=== PATIENT | female | born 1980 | race Caucasian/White ===

== ENCOUNTER 2017-07-02 10:52 | Inpatient (IN) | payer MEDICARE ==
[2017-07-02] MEDS ORDERED: Sodium Chloride 0.9% 1000 ML 1,000 ML IV STA ×3 (10:54→12:44)
--- NOTE | 2017-07-02 11:05 | ERPHSYRPT ---
- History of Present Illness Time Seen by Provider: 07/02/17 10:58 Source: EMS Exam Limitations: other (altered mental condition) Physician History: Pt was found confused by her adult care provider today. She is an unfortunate young lady , who is paraplegic due to and accident. She is responding verbally, c/o abdominal pain, denies vomiting, but unable to give a good, detailed history. Time of Onset/Last Time Seen Normal: yesterday Timing/Duration: today Severity: severe Character of Deficits: other (confusion) Deficits: bed-ridden Baseline/Normal Cognition: alert oriented x 3 Current Cognition: alert but confused Baseline Gait: unable to walk Associated Symptoms: other (abdominal pain) Allergies/Adverse Reactions: prochlorperazine edisylate [From Compazine] Allergy (Mild, Verified 07/02/17 11: 04) prochlorperazine maleate [From Compazine] Allergy (Mild, Verified 07/02/17 11:04 ) latex Adverse Reaction (Verified 07/02/17 11:04) Home Medications: Atenolol [Tenormin] 25 mg PO DAILY 01/11/12 [History] Baclofen 25 mg PO QID 01/11/12 [History] Ferrous Sulfate 325 mg [Feosol 325 mg] 325 mg PO TID 01/11/12 [History] Gabapentin 300 mg [Neurontin 300 mg] 300 mg PO TID 01/11/12 [History] Niacin [Niaspan] 1,000 mg PO HS 01/11/12 [History] Omeprazole 20 MG [Prilosec 20 mg] 20 mg PO DAILY 01/11/12 [History] Oxybutynin Chloride [Ditropan Xl] 15 mg PO BID 01/11/12 [History] Trazodone HCl 50 mg [Desyrel 50 mg] 100 mg PO DAILY 01/11/12 [History] Atorvastatin Calcium [Lipitor] 10 mg PO HS 04/27/12 [History] Cranberry Conc/Ascorbic Acid [Cranberry 6,000 mg Softgel] 2 each PO DAILY [History] Desog-E.estradiol/E.estradiol [Viorele 28 Day Tablet] 1 each PO DAILY 04/01/16 [ History] Lactobacillus Acidophilus [Acidophilus TABLET] 1 tab PO DAILY 04/01/16 [ History] SUMAtriptan succinate [Imitrex 50 mg] 50 mg PO .PRN 04/01/16 [History] Solifenacin Succinate [Vesicare] 10 mg PO DAILY 04/01/16 [History] Oxycodone HCl/Acetaminophen [Percocet 7.5-325 mg Tablet] 1 each PO Q6HPRN PRN [History] Oxycodone HCl/Acetaminophen [Percocet 5-325 mg Tablet] 1 each PO Q6-8HPRN PRN [History] Hx Tetanus, Diphtheria Vaccination/Date Given: No Hx Influenza Vaccination/Date Given: No Hx Pneumococcal Vaccination/Date Given: No - Review of Systems Abdominal/Gastrointestinal: Abdominal Pain All Other Systems: Unable due to condition - Past Medical History Pertinent Past Medical History: Yes Neurological History: Paralysis ENT History: No Pertinent History Cardiac History: Arrhythmia, High Cholesterol Respiratory History: Bronchitis Endocrine Medical History: No Pertinent History Musculoskeletal History: Arthritis GI Medical History: GERD History: Other Psycho-Social History: Anxiety Female Reproductive Disorders: No Pertinent History Other Medical History: [place] SINCE 1996; UTI, chronic cystitis - Past Surgical History Past Surgical History: Yes Neuro Surgical History: No Pertinent History Cardiac: No Pertinent History Respiratory: No Pertinent History Gastrointestinal: Cholecystectomy Genitourinary: No Pertinent History Musculoskeletal: Amputation Female Surgical History: No Pertinent History Other Surgical History: RT LEG- 8 SURGERIES. BACK SURGERY. SUPRAPUBIC CATH - Social History Smoking Status: Never smoker Exposure to second hand smoke: No Drug Use: none Patient Lives Alone: Yes - Female History Hx Now: No - Nursing Vital Signs Nursing Vital Signs: Initial Vital Signs Pulse Rate 144 H 07/02/17 10:57 Respiratory Rate 20 07/02/17 10:57 Blood Pressure 171/93 07/02/17 10:57 O2 Sat by Pulse Oximetry 95 07/02/17 10:57 Pain Scale Pain Intensity 4 - [place] Coma Scale Best Eye Response ([place]): (4) open spontaneously Best Verbal Response ([place]): (4) confused conversation Best Motor Response ([place]): (6) obeys commands [place] Total: 14 - Physical Exam General Appearance: mild distress Eye Exam: bilateral eye: PERRL, EOMI Ears, Nose, Throat Exam: dry mucous membranes Neck Exam: normal inspection, non-tender, supple, No mass, No JVD Respiratory: normal breath sounds, lungs clear, airway intact, No chest tenderness, No respiratory distress Cardiovascular: tachycardia Gastrointestinal: soft, tenderness (diffuse, lower abdomen), distention (severe , lower abdominal), other (umbilicus: small amount of clear liquid drainage ( acccording to patient it has been chronic)) Pelvic Exam: not done Extremity Exam: other (right BKA, both legs with severly atriphic muscles, no edema or tenderness.) Peripheral Pulses: dorsalis-pedis (L): 2+ Mental Status: alert, cooperative, 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 Exam: normal speech, PERRL Skin Exam: normal color, warm, dry, No rash SpO2 Interpretation: normal Oxygen Delivery: Room Air - Course Nursing assessment & vital signs reviewed: Yes EKG Interpreted by Me: RATE (149/min), Sinus Tach, NORMAL AXIS, Non-specific ST Changes - CT Exams Head CT Interpretation: Negative, Tele-radiologist Report Abdomen/Pelvis CT Interpretation: Discussed w/radiologist, Tele-radiologist Report, Other ( discussed with Dr Leong, irregular hypodensity in the subcapsular right lobe of the liver, suggestive of liver laceration/hematoma, correlate with patient history, differential considerations could include an atypival appearance for focal fatty infiltration, teher is no perihepatic collection no evidence of active hemorrhage.) Ordered Tests: Active Orders 24 hr Category Date Time Status Catheter-[place] Mariano STAT Care 07/02/17 10:54 Active EKG-ER Only STAT Care 07/02/17 10:54 Active EKG-ER Only STAT Care 07/02/17 11:05 Active IV Insertion STAT Care 07/02/17 10:54 Active ABDOMEN AND PELVIS W CONTRAST [CT] Stat Exams 07/02/17 11:02 Taken CHEST 1 VIEW (PORTABLE) Stat Exams 07/02/17 10:54 Taken HEAD WITHOUT CONTRAST [CT] Stat Exams 07/02/17 11:02 Taken AMYLASE Stat Lab 07/02/17 13:21 Ordered BLOOD CULTURE Stat Lab 07/02/17 12:00 Received CBC W DIFF Stat Lab 07/02/17 11:36 Completed CK-Creatinine Phosphokinase Urgent Lab 07/02/17 11:36 Completed CMP Stat Lab 07/02/17 11:36 Completed CULTURE,URINE Stat Lab 07/02/17 11:30 Received HCG,QUALITATIVE URINE Stat Lab 07/02/17 11:30 Completed LIPASE Stat Lab 07/02/17 13:21 Ordered Lactic Acid Stat Lab 07/02/17 11:15 Completed Lactic Acid Stat Lab 07/02/17 13:32 Ordered TROPONIN Q3H Lab 07/02/17 11:36 Completed TROPONIN Q3H Lab 07/02/17 14:15 Ordered TROPONIN Q3H Lab 07/02/17 17:15 Ordered TROPONIN Q3H Lab 07/02/17 20:15 Ordered TROPONIN Q3H Lab 07/02/17 23:15 Ordered TSH, 3RD Generation Urgent Lab 07/02/17 11:36 Completed UA W/ MICROSCOPIC Stat Lab 07/02/17 11:30 Completed Medication Summary Generic Name Dose Route Start Last Admin Trade Name Freq PRN Reason Stop Dose Admin Sodium Chloride 1,000 mls @ 999 mls/hr 07/02/17 12:44 07/02/17 13:08 Sodium Chloride 0.9% 1000 Ml IV 07/02/17 13:44 999 mls/hr .Q1H1M STA Administration Piperacillin Sod/Tazobactam Sod 3.375 gm in 100 mls @ 200 mls/hr 07/02/17 13: 37 Zosyn 3.375gm/100 Ml D5w IV 07/02/17 14:06 STAT STA Discontinued Medications Generic Name Dose Route Start Last Admin Trade Name Freq PRN Reason Stop Dose Admin Sodium Chloride 1,000 mls @ 999 mls/hr 07/02/17 10:54 07/02/17 11:10 Sodium Chloride 0.9% 1000 Ml IV 07/02/17 11:54 999 mls/hr .Q1H1M STA Administration Sodium Chloride Confirm 07/02/17 11:10 Sodium Chloride 0.9% 1000 Ml Administered 07/02/17 11:11 Dose 1,000 mls @ ud .ROUTE .STK-MED ONE Ceftriaxone Sodium/Dextrose 1 g in 50 mls @ 100 mls/hr 07/02/17 12:21 12:36 Rocephin 1 Gm-D5w 50 Ml Bag IV 07/02/17 12:50 100 mls/hr STAT STA Administration Sodium Chloride Confirm 07/02/17 12:26 Sodium Chloride 0.9% 1000 Ml Administered 07/02/17 12:27 Dose 1,000 mls @ ud .ROUTE .STK-MED ONE Sodium Chloride 1,000 mls @ 999 mls/hr 07/02/17 12:32 07/02/17 12:37 Sodium Chloride 0.9% 1000 Ml IV 07/02/17 13:32 999 mls/hr .Q1H1M STA Administration Ceftriaxone Sodium/Dextrose Confirm 07/02/17 12:34 Rocephin 1 Gm-D5w 50 Ml Bag Administered 07/02/17 12:35 Dose 1 g in 50 mls @ ud IV .STK-MED ONE Sodium Chloride Confirm 07/02/17 13:06 Sodium Chloride 0.9% 1000 Ml Administered 07/02/17 13:07 Dose 1,000 mls @ ud .ROUTE .STK-MED ONE Lab/Rad Data: Laboratory Result Diagrams 07/02/17 11:36 07/02/17 11:36 Laboratory Results 07/02/17 07/02/17 07/02/17 Range/Units 11:36 11:36 11:36 WBC 18.0 H (4.0-10.5) K/mm3 RBC 4.35 (4.1-5.4) M/mm3 Hgb 12.5 (12.0-16.0) gm/dl Hct 39.0 (35-47) % MCV 89.7 (78-100) fl MCH 28.7 (26-32) pg MCHC 32.1 (32-36) g/dl RDW 14.8 H (11.5-14.0) % Plt Count 484 H (150-450) K/mm3 MPV 9.8 H (6-9.5) fl Gran % 80.4 H (36.0-66.0) % Eos # (Auto) 0.08 (0-0.5) Absolute Lymphs (auto) 2.63 (1.0-4.6) Absolute Monos (auto) 0.80 (0.0-1.3) Lymphocytes % 14.6 L (24.0-44.0) % Monocytes % 4.4 (0.0-12.0) % Eosinophils % 0.4 (0.00-5.0) % Basophils % 0.2 (0.0-0.4) % Absolute Granulocytes 14.46 H (1.4-6.9) Basophils # 0.04 (0-0.4) Sodium 138 (137-145) mmol/L Potassium 3.6 (3.5-5.1) mmol/L Chloride 99 (98-107) mmol/L Carbon Dioxide 19 L (22-30) mmol/L Anion Gap 23.3 H (5-15) MEQ/L BUN 11 (7-17) mg/dL Creatinine 0.67 (0.52-1.04) mg/dL Estimated GFR > 60.0 ML/MIN Glucose 178 H (74-106) mg/dL Lactic Acid (0.4-2.0) Calcium 10.0 (8.4-10.2) mg/dL Total Bilirubin 0.30 (0.2-1.3) mg/dL AST 36 (14-36) U/L ALT 25 (0-35) U/L Alkaline Phosphatase 50 (38-126) U/L Creatine Kinase 26 L (30-135) U/L Troponin I < 0.012 (0.000-0.034) ng/mL Serum Total Protein 8.1 (6.3-8.2) g/dL Albumin 4.2 (3.5-5.0) g/dL TSH 3rd Generation 0.941 (0.47-4.68) mIU/L Ur Collection Type Urine Color (YELLOW) Urine Appearance (CLEAR) Urine pH (5-6) Ur Specific [place] (1.005-1.025) Urine Protein (Negative) Urine Ketones (NEGATIVE) Urine Blood (0-5) Adam/ul Urine Nitrite (NEGATIVE) Urine Bilirubin (NEGATIVE) Urine Urobilinogen (0-1) mg/dL Ur Leukocyte Esterase (NEGATIVE) Urine Microscopic WBC (0-5) /HPF Ur Epithelial Cells (FEW) /HPF Urine Bacteria (NEGATIVE) /HPF Urine Culture Reflexed (NO) Urine Glucose (NEGATIVE) mg/dL Urine HCG, Qual (Negative) Specimen Received 07/02/17 07/02/17 07/02/17 Range/Units 11:30 11:30 11:15 WBC (4.0-10.5) K/mm3 RBC (4.1-5.4) M/mm3 Hgb (12.0-16.0) gm/dl Hct (35-47) % MCV (78-100) fl MCH (26-32) pg MCHC (32-36) g/dl RDW (11.5-14.0) % Plt Count (150-450) K/mm3 MPV (6-9.5) fl Gran % (36.0-66.0) % Eos # (Auto) (0-0.5) Absolute Lymphs (auto) (1.0-4.6) Absolute Monos (auto) (0.0-1.3) Lymphocytes % (24.0-44.0) % Monocytes % (0.0-12.0) % Eosinophils % (0.00-5.0) % Basophils % (0.0-0.4) % Absolute Granulocytes (1.4-6.9) Basophils # (0-0.4) Sodium (137-145) mmol/L Potassium (3.5-5.1) mmol/L Chloride (98-107) mmol/L Carbon Dioxide (22-30) mmol/L Anion Gap (5-15) MEQ/L BUN (7-17) mg/dL Creatinine (0.52-1.04) mg/dL Estimated GFR ML/MIN Glucose (74-106) mg/dL Lactic Acid 3.9 H (0.4-2.0) Calcium (8.4-10.2) mg/dL Total Bilirubin (0.2-1.3) mg/dL AST (14-36) U/L ALT (0-35) U/L Alkaline Phosphatase (38-126) U/L Creatine Kinase (30-135) U/L Troponin I (0.000-0.034) ng/mL Serum Total Protein (6.3-8.2) g/dL Albumin (3.5-5.0) g/dL TSH 3rd Generation (0.47-4.68) mIU/L Ur Collection Type CATH Urine Color YELLOW (YELLOW) Urine Appearance CLOUDY (CLEAR) Urine pH 7.0 (5-6) Ur Specific [place] 1.010 (1.005-1.025) Urine Protein 100 (Negative) Urine Ketones NEGATIVE (NEGATIVE) Urine Blood 50 (0-5) Adam/ul Urine Nitrite NEGATIVE (NEGATIVE) Urine Bilirubin NEGATIVE (NEGATIVE) Urine Urobilinogen NORMAL (0-1) mg/dL Ur Leukocyte Esterase 2+ (NEGATIVE) Urine Microscopic WBC >100 (0-5) /HPF Ur Epithelial Cells MANY (FEW) /HPF Urine Bacteria PACKED (NEGATIVE) /HPF Urine Culture Reflexed YES (NO) Urine Glucose NEGATIVE (NEGATIVE) mg/dL Urine HCG, Qual NEGATIVE (Negative) Specimen Received 07/02/17 1130 - Progress Progress: improved Progress Note: 07/02/17 13:45 Pt has been doing better, less confused, denies severe pain, afebrile, she denies recent fall, or injuries. I called Dr rAagon, discussed all results and patient's current condition in details, he agreed to admit her to ICU for further treatment, she was started on iv Rocephine, which was changed to Zosyn. I informed patient's family, they agreed. Discussed with : Melany Will see patient in: hospital (full admit) Counseled pt/family regarding: lab results, diagnosis, rad results - Departure Time of Disposition: 13:48 Departure Disposition: In-patient Admission Clinical Impression: Tachycardia UTI (urinary tract infection) Qualifiers: Urinary tract infection type: site unspecified Hematuria presence: without hematuria Qualified Code(s): N39.0 - Urinary tract infection, site not specified Altered mental status Qualifiers: Altered mental status type: disorientation Qualified Code(s): R41.0 - Disorientation, unspecified Condition: Fair Critical Care Time: Yes Critical Care Time(excluding separately billable procedures): 75-104 minutes Referrals: ARACELY JUAREZ [Primary Care Provider] -
[2017-07-02] MEDS ORDERED: Sodium Chloride 0.9% 1000 ML 1,000 ML ONE ×3 (11:10→13:06)
[2017-07-02 11:32] LABS: Lactic Acid 3.9 (0.4-2.0)
[2017-07-02 11:45] LABS: BASOPHIL % 0.2 % (0.0-0.4); Basophil (Absolute #) 0.04 (0-0.4); Eosinophil % 0.4 % (0.00-5.0); Eosinophil (Absolute #) 0.08 (0-0.5); Granulocyte Absolute (ANC) 14.46 (1.4-6.9); Granulocytes % 80.4 % (36.0-66.0); Hemoglobin 12.5 gm/dl (12.0-16.0); Lymphocyte (Absolute #) 2.63 (1.0-4.6); Lymphocytes % 14.6 % (24.0-44.0); Mean Cell Volume 89.7 fl (78-100); Mean Corpuscular Hemoglobin 28.7 pg (26-32); Mean Corpuscular Hgb Concent. 32.1 g/dl (32-36); Mean Platelet Volume 9.8 fl (6-9.5); Monocytes % 4.4 % (0.0-12.0); Platelet Count 484 K/mm3 (150-450); Red Blood Count 4.35 M/mm3 (4.1-5.4); Red Cell Distribution Width 14.8 % (11.5-14.0)
[2017-07-02 12:04] LABS: CK-Creatinine Phosphokinase 26 U/L (30-135)
[2017-07-02 12:06] LABS: ALBUMIN 4.2 g/dL (3.5-5.0); ALKALINE PHOSPHATASE 50 U/L (38-126); ANION GAP 23.3 MEQ/L (5-15); BLOOD UREA NITROGEN 11 mg/dL (7-17); CHLORIDE 99 mmol/L (98-107); Carbon Dioxide 19 mmol/L (22-30); Creatinine 1 0.67 mg/dL (0.52-1.04); Glucose 178 mg/dL (74-106); Potassium 3.6 mmol/L (3.5-5.1); SGOT/AST 36 U/L (14-36); SODIUM 138 mmol/L (137-145); Total Protein 8.1 g/dL (6.3-8.2)
[2017-07-02 12:13] LABS: Appearance CLOUDY (CLEAR); Bacteria PACKED /HPF (NEGATIVE); Bilirubin NEGATIVE (NEGATIVE); Blood 50 Ery/ul (0-5); Epithelial Cells MANY /HPF (FEW); Glucose NEGATIVE (NEGATIVE); Ketones NEGATIVE (NEGATIVE); Leukocyte Esterase 2+ (NEGATIVE); Nitrite NEGATIVE (NEGATIVE); Protein,Urine Dip 100 (Negative); Urobilinogen NORMAL mg/dL (0-1); WBC >100 /HPF (0-5)
[2017-07-02 12:14] LABS: SGPT/ALT 25 U/L (0-35)
[2017-07-02] MEDS ORDERED: ROCEPHIN 1 Gm-D5w 50 ml Bag** 1 G/50 ML IVPB IV STA (12:21)
[2017-07-02 12:26] LABS: TROPONIN < 0.012 ng/mL (0.000-0.034)
[2017-07-02] MEDS ORDERED: ROCEPHIN 1 Gm-D5w 50 ml Bag** 1 G/50 ML IVPB IV ONE (12:34)
[2017-07-02 12:36] LABS: TSH, 3RD Generation 0.941 mIU/L (0.47-4.68)
[2017-07-02] MEDS ORDERED: Zosyn 3.375GM/100 Ml D5W 3.375 GM/100 ML IVPB IV STA (13:37)
[2017-07-02 13:43] LABS: AMYLASE 40 U/L (30-110); LIPASE 75 U/L (23-300)
[2017-07-02] MEDS ORDERED: Zosyn 3.375GM/100 Ml D5W 3.375 GM/100 ML IVPB IV ONE (13:43)
[2017-07-02] MEDS ORDERED: Zofran 4 MG/2 ML VIAL IV PRN (13:49)
[2017-07-02] MEDS: Sodium Chloride 0.9% 1000 ML 1,000 ML IV SCH (15:18)
[2017-07-02 15:34] LABS: Lactic Acid 2.9 (0.4-2.0)
[2017-07-02] MEDS ORDERED: Lactated Ringers 1,000 ML IV SCH (16:30)
[2017-07-02] MEDS ORDERED: TENORMIN 50 MG ONE (16:54)
[2017-07-02] MEDS: NEURONTIN 300 MG PO SCH ×2 (16:57→21:08)
[2017-07-02] MEDS: LIORESAL 10 MG PO SCH ×2 (16:57→21:07)
[2017-07-02] MEDS ORDERED: TENORMIN 50 MG PO SCH (17:00)
[2017-07-02] MEDS ORDERED: TRANDATE 20 MG/5 ML SYRINGE IV ONE (17:16)
[2017-07-02] MEDS ORDERED: Zosyn 3.375GM/100 Ml D5W 3.375 GM/100 ML IVPB IV SCH (18:00)
--- NOTE | 2017-07-02 18:30 | PCM.HP ---
History of Present Illness - Chief Complaint Chief Complaint: AMS Date: 07/02/17 History of Present Illness: is a 37 year old female. who presented to the ED with altered mental status. She reports she lives alone and has aides that come by infrequently. she is unsure the last time anyone checked on her. The family has arrived with brother's and sisters and they are unsure when she was normal last and she is can't recall the last thing she did or what she did last week. She reports she currently feels much better and denies any chest pain, shortness of breath, nausea or abdominal pain. She is not having any headaches or neck stiffness. She is very thirsty. She reports she usually self calths about 4 times per day not sure when she did last. she usually has constipation but had liquid stool with undissolved capsules on arrival to the unit. - Review of Systems Constitutional: No Fever, No Chills Eyes: No Symptoms Ears, Nose, & Throat: No Symptoms Respiratory: No Cough, No Short Of Breath Cardiac: No Chest Pain, No Edema, No Syncope Abdominal/Gastrointestinal: No Abdominal Pain, No Nausea, No Vomiting, No Diarrhea Genitourinary Symptoms: No Dysuria Musculoskeletal: No Back Pain, No Neck Pain Skin: No Rash Neurological: No Dizziness, No Focal Weakness, No Sensory Changes Psychological: No Symptoms Endocrine: No Symptoms Hematologic/Lymphatic: No Symptoms Immunological/Allergic: No Symptoms Medications & Allergies Home Medications: Home Medication List Atenolol [Tenormin] 25 mg PO BID 01/11/12 [History Confirmed 07/02/17] Baclofen 25 mg PO QID 01/11/12 [History Confirmed 07/02/17] Ferrous Sulfate 325 mg [Feosol 325 mg] 325 mg PO TID 01/11/12 [History Confirmed 07/02/17] Gabapentin 300 mg [Neurontin 300 mg] 300 mg PO TID 01/11/12 [History Confirmed 07/02/17] Niacin [Niaspan] 1,000 mg PO HS 01/11/12 [History Confirmed 07/02/17] Omeprazole 20 MG [Prilosec 20 mg] 20 mg PO DAILY 01/11/12 [History Confirmed ] Oxybutynin Chloride [Ditropan Xl] 15 mg PO BID 01/11/12 [History Confirmed 07/02] Trazodone HCl 50 mg [Desyrel 50 mg] 100 mg PO DAILY 01/11/12 [History Confirmed 07/02/17] Atorvastatin Calcium [Lipitor] 20 mg PO HS 04/27/12 [History Confirmed 07/02/17] Cranberry Conc/Ascorbic Acid [Cranberry 6,000 mg Softgel] 2 each PO DAILY [History Confirmed 07/02/17] Lactobacillus Acidophilus [Acidophilus TABLET] 1 tab PO DAILY 04/01/16 [ History Confirmed 07/02/17] SUMAtriptan succinate [Imitrex 50 mg] 50 mg PO .PRN 04/01/16 [History Confirmed 07/02/17] Solifenacin Succinate [Vesicare] 10 mg PO DAILY 04/01/16 [History Confirmed ] Desog-E.estradiol/E.estradiol [Viorele 28 Day Tablet] 1 tab PO DAILY 07/02/17 [ History Confirmed 07/02/17] Fluticasone Propionate 1 spray INTRANASAL DAILY 07/02/17 [History Confirmed ] Loratadine 10 mg [Claritin 10 mg] 10 mg DAILY 07/02/17 [History Confirmed 07/02/17] Multivit with Calcium,Iron,Min [Womens Multiple Vitamins] 1 each PO DAILY [History Confirmed 07/02/17] Ropinirole HCl 0.5 mg [Requip 0.5 MG] 0.5 mg TID 07/02/17 [History Confirmed 07/02/17] Allergies/Adverse Reactions: Allergies Allergy/AdvReac Type Severity Reaction Status Date / Time prochlorperazine edisylate Allergy Mild Verified 07/02/17 11:04 [From Compazine] prochlorperazine maleate Allergy Mild Verified 07/02/17 11:04 [From Compazine] latex AdvReac Verified 07/02/17 11:04 - Past Medical History Past Medical History: Yes Neurological History: Migraines, Paralysis ENT History: No Pertinent History Cardiac History: Arrhythmia, High Cholesterol Respiratory History: Asthma, Bronchitis Endocrine Medical History: No Pertinent History Musculoskelatal History: Arthritis GI Medical History: GERD History: Other Pyscho-Social History: Anxiety Reproductive Disorders: No Pertinent History Comment: [place] SINCE 1996; UTI, chronic cystitis - Female History Hx Last Menstrual Period: "I don't remember. Are you now?: No - Past Surgical History Past Surgical History: Yes Neuro Surgical History: No Pertinent History Cardiac History: No Pertinent History Respiratory Surgery: No Pertinent History GI Surgical History: Cholecystectomy Genitourinary Surgical Hx: No Pertinent History Musculskeletal Surgical Hx: Amputation Female Surgical History: No Pertinent History Other Surgical History: RT LEG- 8 SURGERIES. BACK SURGERY. SUPRAPUBIC CATH - Social History Smoking Status: Never smoker Exposure to second hand smoke: No Alcohol: None Drug Use: none - Physical Exam Vital Signs: Vital Signs - 24 hr Temp Pulse Resp BP BP Pulse Ox 07/02/17 16:58 135 H 178/100 07/02/17 16:10 98.5 F 137 H 28 H 162/94 95 07/02/17 14:48 98.7 F 144 H 97 H 127/105 07/02/17 13:50 144 H 16 172/94 99 07/02/17 13:09 140 H 16 159/86 98 07/02/17 12:33 152 H 24 164/83 96 07/02/17 10:57 144 H 20 171/93 95 General Appearance: no apparent distress, alert, obese Neurologic Exam: alert, cooperative, normal mood/affect, nml cerebellar function , sensation nml, other (amputee. she is oriented to place and year but not date this is improved from arrival to ED when she thought it was 1991), No motor deficits Eye Exam: PERRL/EOMI, eyes nml inspection, No scleral icterus, No pale conjunctivae Ears, Nose, Throat Exam: normal ENT inspection, pharynx normal, moist mucous membranes Neck Exam: normal inspection, non-tender, supple, full range of motion Respiratory Exam: normal breath sounds, lungs clear, No respiratory distress Cardiovascular Exam: tachycardia, edema (trace [place] upper extremities) Gastrointestinal/Abdomen Exam: soft, normal bowel sounds, No tenderness, No distention, No mass, No guarding, No ecchymosis, No rebound Back Exam: normal inspection, normal range of motion, No vertebral tenderness Extremity Exam: other (amputee lower limb) Skin Exam: normal color, warm, dry, No rash Lymphatic Exam: No adenopathy Assessment/Plan (1) Sepsis Current Visit: Yes Status: Acute Assessment & Plan: suspected secondary to UTI with severe tachycardia improving after 4 L of fluids the lactic acid improving some she did have incontinence of large amount of liquid stool c. diff testing pending repeated LR bolus and obtaining another lactic acid now with a blood gas and the cbc to rule out ongoing blood loss with the liver lesion which appears very unlikely She is having copious output with the Mariano catheter 2.8L since arrival to the floor She denies any ingestion or illicit substances no evidence to suggest intentional ingestions at this time but will check urine triage for a precaution and check the blood gas as well to better risk stratify continue empiric coverage with the zosyn continue prn labetalol for the hypertension she has restarted her baclofen for her spasticity (2) UTI (urinary tract infection) Current Visit: Yes Status: Acute Qualifiers: Urinary tract infection type: site unspecified Hematuria presence: without hematuria Qualified Code(s): N39.0 - Urinary tract infection, site not specified Code(s): N39.0 - URINARY TRACT INFECTION, SITE NOT SPECIFIED (3) Acute metabolic encephalopathy Current Visit: Yes Status: Acute Code(s): G93.41 - METABOLIC ENCEPHALOPATHY (4) Spasticity Current Visit: Yes Status: Chronic Code(s): R25.2 - CRAMP AND SPASM (5) Liver lesion, right lobe Current Visit: Yes Status: Chronic Assessment & Plan: Per preliminary CT report there is an irregular hypodensitiy in the subcapsular right gustavo of the liver suggestive of a liver laceration or hematoma she has known history of remote liver laceration from 1996 and it seems that this is most likely a sequale to this there is no evidence of active hemorrhage or recent injury on exam and palpation is nontender Code(s): K76.89 - OTHER SPECIFIED DISEASES OF LIVER (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
[2017-07-02 18:51] LABS: Hematocrit 33.5 % (35-47); Hemoglobin 10.8 gm/dl (12.0-16.0); Mean Cell Volume 90.5 fl (78-100); Mean Corpuscular Hemoglobin 29.1 pg (26-32); Mean Corpuscular Hgb Concent. 32.2 g/dl (32-36); Mean Platelet Volume 9.4 fl (6-9.5); Platelet Count 396 K/mm3 (150-450); Red Cell Distribution Width 14.8 % (11.5-14.0); White Blood Count 15.3 K/mm3 (4.0-10.5)
[2017-07-02 18:52] LABS: A-aADO2 35; ABG HEMOGLOBIN 11.4; ABG POTASSIUM 3.3 (3.5-5.1); ABG SITE RIGHT BRACHIAL; ARTERIAL BLD GAS O2 SATURATION 95.6 % (95-100); ARTERIAL BLOOD GAS BASE EXCESS -2.3 (-2.0-2.0); ARTERIAL BLOOD GAS FIO2 21 %; ARTERIAL BLOOD GAS PCO2 28 mmHg (35-45); ARTERIAL BLOOD GAS PO2 80 mmHg (75-100); ARTERIAL BLOOD GAS pH 7.47 (7.35-7.45); CARBOXYHEMOGLOBIN 1.4 % THgb (0.0-6.9); HCO3- 20.4 (22-28); HGB O2 SAT 93.9 g/dF (94-100); Methhemoglobin 0.5 % (1.4-1.5)
[2017-07-02] MEDS ORDERED: Lactated Ringers 1,000 ML IV ONE (18:57)
[2017-07-02 19:52] LABS: 027 TOX PROD PRESUMPTIVE NEGATIVE (NEGATIVE)
[2017-07-02 19:54] LABS: TOXIGENIC C. DIFF ORG POSITIVE (NEGATIVE)
--- NOTE | 2017-07-02 20:49 | XRAY ---
Indication: Abdomen pain, nausea, and altered mental status. Multiple contiguous axial images obtained through the abdomen and pelvis using 80 cc Isovue 370 contrast only. Comparison: Noncontrast exam January 06, 2016. Again thoracolumbar spinal hardware produces beam artifact. Study is also degraded by respiration artifact. Lung bases clear. Heart is not enlarged. Noncontrasted stomach and bowel loops appear nonobstructed. Again previous cholecystectomy. No free fluid/air. Stable remnant urachus track. New Mariano catheter in situ. In the posterior right lobe of liver, there is irregular subcapsular hypodensity measuring at least 3.5 x 5 cm. Difficult to differentiate a hepatic mass, laceration/hematoma, or motion artifact. Remaining liver, pancreas, spleen, adrenal glands, kidneys, ureters, bladder, uterus, and aorta appear unremarkable. No pathologic retroperitoneal lymphadenopathy. Osseous structures demonstrate stable levorotoscoliosis and degenerative changes both hips. Impression: 1. Limited exam due to respiration artifact. 2. Right lobe hepatic irregular hyperdensity either mass, laceration/hematoma, or motion artifact. Ultrasound may yield further information if patient is able. 3. New Mariano catheter in situ. 4. Stable remnant urachus track and chronic bony findings. Comment: Preliminary interpretation was made by [facility]. No critical discrepancy. CTDI 23.29
--- NOTE | 2017-07-02 20:51 | XRAY ---
Indication: Cough, abdomen pain, and altered mental status. Comparison: February 25, 2014. Portable chest remains clear. Heart is not enlarged. Bony thorax intact again with bilateral spinal hardware. No new/acute findings. Impression: Stable nonacute chest.
--- NOTE | 2017-07-02 20:51 | XRAY ---
Indication: Altered mental status. Multiple contiguous axial images obtained through the head without contrast. Comparison: None Ventriculosulcal pattern appears symmetric. No acute intracranial hemorrhage, abnormal extra-axial fluid collection, or mass effect. Fourth ventricle is midline without hydrocephalus. [place]-white matter differentiation preserved. Bony calvarium intact. Visualized paranasal sinuses and mastoid air cells are clear. Impression: No acute intracranial abnormalities. Comment: Preliminary interpretation was made by [facility]. No discrepancy. CTDI 67.22
[2017-07-02] MEDS: PATIENT OWN MEDICATION PO SCH (21:01)
[2017-07-02] MEDS: Requip 0.5 MG PO SCH (21:07)
[2017-07-02] MEDS: FLAGYL 500 MG IVPB 500 MG/100 ML BAG IV SCH ×2 (21:07→23:04)
[2017-07-02] MEDS: TENORMIN 50 MG PO SCH (21:08)
[2017-07-02] MEDS: FEOSOL 325 MG PO SCH (21:09)
[2017-07-02] MEDS: ZOCOR 20MG PO SCH (21:09)
[2017-07-02] MEDS: DESYREL 50 MG PO SCH (21:11)
[2017-07-02] MEDS: VANCOMYCIN 25MG/ML COMPOUND KIT PO SCH (21:40)
[2017-07-02 22:20] LABS: Lactic Acid 1.9 (0.4-2.0)
[2017-07-02] MEDS: ENOXAPARIN SODIUM SQ SCH (22:32)
[2017-07-02 23:07] LABS: ANION GAP 17.2 MEQ/L (5-15); BLOOD UREA NITROGEN 5 mg/dL (7-17); CHLORIDE 108 mmol/L (98-107); Calcium 8.9 mg/dL (8.4-10.2); Carbon Dioxide 22 mmol/L (22-30); Creatinine 1 0.45 mg/dL (0.52-1.04); Glucose 118 mg/dL (74-106); Potassium 3.4 mmol/L (3.5-5.1); SODIUM 144 mmol/L (137-145)
[2017-07-03] MEDS: TYLENOL 325 MG PO PRN ×4 (03:50→19:48)
[2017-07-03] MEDS: VANCOMYCIN 25MG/ML COMPOUND KIT PO SCH ×4 (03:52→22:51)
[2017-07-03] MEDS: FLAGYL 500 MG IVPB 500 MG/100 ML BAG IV SCH ×3 (05:32→22:48)
[2017-07-03 05:57] LABS: BASOPHIL % 0.4 % (0.0-0.4); Basophil (Absolute #) 0.05 (0-0.4); Eosinophil % 1.9 % (0.00-5.0); Eosinophil (Absolute #) 0.26 (0-0.5); Granulocyte Absolute (ANC) 8.84 (1.4-6.9); Granulocytes % 63.3 % (36.0-66.0); Hematocrit 33.1 % (35-47); Hemoglobin 10.4 gm/dl (12.0-16.0); Lymphocyte (Absolute #) 3.79 (1.0-4.6); Lymphocytes % 27.1 % (24.0-44.0); Mean Cell Volume 92.5 fl (78-100); Mean Corpuscular Hgb Concent. 31.4 g/dl (32-36); Mean Platelet Volume 9.7 fl (6-9.5); Monocyte (Absolute #) 1.02 (0.0-1.3); Monocytes % 7.3 % (0.0-12.0); Platelet Count 385 K/mm3 (150-450); Red Blood Count 3.58 M/mm3 (4.1-5.4); Red Cell Distribution Width 14.9 % (11.5-14.0)
[2017-07-03 06:17] LABS: ALBUMIN 3.3 g/dL (3.5-5.0); ALKALINE PHOSPHATASE 35 U/L (38-126); ANION GAP 13.6 MEQ/L (5-15); BLOOD UREA NITROGEN 5 mg/dL (7-17); CHLORIDE 107 mmol/L (98-107); Calcium 8.7 mg/dL (8.4-10.2); Carbon Dioxide 23 mmol/L (22-30); Creatinine 1 0.45 mg/dL (0.52-1.04); Glucose 110 mg/dL (74-106); Potassium 3.1 mmol/L (3.5-5.1); SGOT/AST 50 U/L (14-36); SGPT/ALT 26 U/L (0-35); SODIUM 140 mmol/L (137-145); Total Protein 6.6 g/dL (6.3-8.2)
[2017-07-03] MEDS ORDERED: Lactated Ringers 1,000 ML IV ONE (07:30)
[2017-07-03] MEDS: Sodium Chloride 0.9% 1000 ML 1,000 ML IV SCH ×3 (07:47→23:00)
--- NOTE | 2017-07-03 08:51 | PCM.NOTE ---
Date and Time: 07/03/17 0845 Subjective Assessment: Pt is feeling much better this morning, conversant, does remember that she was "out of it" when she was ill. Does remember having some urinary frequency, denies dysuria or vomiting. No abd pain this morning. No BMs today. - Review of Systems Constitutional: No Fever Genitourinary Symptoms: Frequency Psychological: No Anxiety, No Depression, No Suicidal Ideations Objective Exam General Appearance: no apparent distress, alert Neurologic Exam: oriented x 3, cooperative Skin Exam: normal color, warm, dry, other (face with several scattered erythematous annular lesions), No rash Neck Exam: normal inspection Respiratory Exam: normal breath sounds, lungs clear, No crackles/rales, No rhonchi, No wheezing Cardiovascular Exam: regular rate/rhythm, normal heart sounds, No murmur OBJECTIVE DATA Vital Signs: Vital Signs - 24 hr Temp Pulse Resp BP BP Pulse Ox 07/03/17 04:00 98.4 F 105 H 23 146/86 96 07/03/17 00:01 111 H 07/03/17 00:00 97.8 F 111 H 28 H 133/85 94 L 07/02/17 21:08 109 H 138/96 07/02/17 20:00 98.4 F 109 H 28 H 138/96 96 07/02/17 16:58 135 H 178/100 07/02/17 16:10 98.5 F 137 H 28 H 162/94 95 07/02/17 14:48 98.7 F 144 H 97 H 127/105 07/02/17 13:50 144 H 16 172/94 99 07/02/17 13:09 140 H 16 159/86 98 07/02/17 12:33 152 H 24 164/83 96 07/02/17 10:57 144 H 20 171/93 95 Pain Assessment - Last Documented Pain Intensity 4 Pain Scale Used 0-10 Pain Scale Intake and Output: Intake & Output 06/30/17 07/01/17 07/02/17 07/03/17 11:59 11:59 11:59 11:59 Intake Total 5305 Output Total 6100 Balance -795 Weight 80 kg Lab Results: Lab Results-Last 24 Hours 07/02/17 07/02/17 07/02/17 Range/Units 18:00 18:43 18:43 WBC (4.0-10.5) K/mm3 RBC (4.1-5.4) M/mm3 Hgb (12.0-16.0) gm/dl Hct (35-47) % MCV (78-100) fl MCH (26-32) pg MCHC (32-36) g/dl RDW (11.5-14.0) % Plt Count (150-450) K/mm3 MPV (6-9.5) fl Gran % (36.0-66.0) % Eos # (Auto) (0-0.5) Absolute Lymphs (auto) (1.0-4.6) Absolute Monos (auto) (0.0-1.3) Lymphocytes % (24.0-44.0) % Monocytes % (0.0-12.0) % Eosinophils % (0.00-5.0) % Basophils % (0.0-0.4) % Absolute Granulocytes (1.4-6.9) Basophils # (0-0.4) Puncture Site RIGHT BRACHIAL pCO2 28 L (35-45) mmHg pO2 80 (75-100) mmHg Base Excess -2.3 L (-2.0-2.0) O2 Saturation 93.9 L (94-100) g/dF ABG pH 7.47 H (7.35-7.45) ABG HCO3 20.4 L (22-28) ABG O2 Sat (Measured) 95.6 (95-100) % Elmo Test NOT APPLICABLE A-a Gradient 35 a/A Ratio 0.70 Hemoglobin 11.4 Carboxyhemoglobin 1.4 (0.0-6.9) % THgb Methemoglobin 0.5 L (1.4-1.5) % Potassium 3.3 L (3.5-5.1) Temperature 37.0 C POC O2 Flow Rate 21 % Sodium (137-145) mmol/L Chloride (98-107) mmol/L Carbon Dioxide (22-30) mmol/L Anion Gap (5-15) MEQ/L BUN (7-17) mg/dL Creatinine (0.52-1.04) mg/dL Estimated GFR ML/MIN Glucose (74-106) mg/dL Lactic Acid 4.0 H (0.4-2.0) Calcium (8.4-10.2) mg/dL Total Bilirubin (0.2-1.3) mg/dL AST (14-36) U/L ALT (0-35) U/L Alkaline Phosphatase (38-126) U/L Creatine Kinase (30-135) U/L Serum Total Protein (6.3-8.2) g/dL Albumin (3.5-5.0) g/dL Stl C. diff Tox B Gene POSITIVE (NEGATIVE) C.difficile 027-NAP1-B1 PRESUMPTIVE NEGATIVE (NEGATIVE) 07/02/17 07/02/17 07/02/17 Range/Units 18:45 22:14 22:15 WBC 15.3 H (4.0-10.5) K/mm3 RBC 3.70 L (4.1-5.4) M/mm3 Hgb 10.8 L (12.0-16.0) gm/dl Hct 33.5 L (35-47) % MCV 90.5 (78-100) fl MCH 29.1 (26-32) pg MCHC 32.2 (32-36) g/dl RDW 14.8 H (11.5-14.0) % Plt Count 396 (150-450) K/mm3 MPV 9.4 (6-9.5) fl Gran % (36.0-66.0) % Eos # (Auto) (0-0.5) Absolute Lymphs (auto) (1.0-4.6) Absolute Monos (auto) (0.0-1.3) Lymphocytes % (24.0-44.0) % Monocytes % (0.0-12.0) % Eosinophils % (0.00-5.0) % Basophils % (0.0-0.4) % Absolute Granulocytes (1.4-6.9) Basophils # (0-0.4) Puncture Site pCO2 (35-45) mmHg pO2 (75-100) mmHg Base Excess (-2.0-2.0) O2 Saturation (94-100) g/dF ABG pH (7.35-7.45) ABG HCO3 (22-28) ABG O2 Sat (Measured) (95-100) % Elmo Test A-a Gradient a/A Ratio Hemoglobin Carboxyhemoglobin (0.0-6.9) % THgb Methemoglobin (1.4-1.5) % Potassium 3.4 L (3.5-5.1) Temperature C POC O2 Flow Rate % Sodium 144 (137-145) mmol/L Chloride 108 H (98-107) mmol/L Carbon Dioxide 22 (22-30) mmol/L Anion Gap 17.2 H (5-15) MEQ/L BUN 5 L (7-17) mg/dL Creatinine 0.45 L (0.52-1.04) mg/dL Estimated GFR > 60.0 ML/MIN Glucose 118 H (74-106) mg/dL Lactic Acid 1.9 (0.4-2.0) Calcium 8.9 (8.4-10.2) mg/dL Total Bilirubin (0.2-1.3) mg/dL AST (14-36) U/L ALT (0-35) U/L Alkaline Phosphatase (38-126) U/L Creatine Kinase (30-135) U/L Serum Total Protein (6.3-8.2) g/dL Albumin (3.5-5.0) g/dL Stl C. diff Tox B Gene (NEGATIVE) C.difficile 027-NAP1-B1 (NEGATIVE) 07/02/17 07/03/17 07/03/17 Range/Units 22:15 05:45 05:45 WBC 14.0 H (4.0-10.5) K/mm3 RBC 3.58 L (4.1-5.4) M/mm3 Hgb 10.4 L (12.0-16.0) gm/dl Hct 33.1 L (35-47) % MCV 92.5 (78-100) fl MCH 29.0 (26-32) pg MCHC 31.4 L (32-36) g/dl RDW 14.9 H (11.5-14.0) % Plt Count 385 (150-450) K/mm3 MPV 9.7 H (6-9.5) fl Gran % 63.3 (36.0-66.0) % Eos # (Auto) 0.26 (0-0.5) Absolute Lymphs (auto) 3.79 (1.0-4.6) Absolute Monos (auto) 1.02 (0.0-1.3) Lymphocytes % 27.1 (24.0-44.0) % Monocytes % 7.3 (0.0-12.0) % Eosinophils % 1.9 (0.00-5.0) % Basophils % 0.4 (0.0-0.4) % Absolute Granulocytes 8.84 H (1.4-6.9) Basophils # 0.05 (0-0.4) Puncture Site pCO2 (35-45) mmHg pO2 (75-100) mmHg Base Excess (-2.0-2.0) O2 Saturation (94-100) g/dF ABG pH (7.35-7.45) ABG HCO3 (22-28) ABG O2 Sat (Measured) (95-100) % Elmo Test A-a Gradient a/A Ratio Hemoglobin Carboxyhemoglobin (0.0-6.9) % THgb Methemoglobin (1.4-1.5) % Potassium 3.1 L (3.5-5.1) Temperature C POC O2 Flow Rate % Sodium 140 (137-145) mmol/L Chloride 107 (98-107) mmol/L Carbon Dioxide 23 (22-30) mmol/L Anion Gap 13.6 (5-15) MEQ/L BUN 5 L (7-17) mg/dL Creatinine 0.45 L (0.52-1.04) mg/dL Estimated GFR > 60.0 ML/MIN Glucose 110 H (74-106) mg/dL Lactic Acid (0.4-2.0) Calcium 8.7 (8.4-10.2) mg/dL Total Bilirubin 0.10 L (0.2-1.3) mg/dL AST 50 H (14-36) U/L ALT 26 (0-35) U/L Alkaline Phosphatase 35 L (38-126) U/L Creatine Kinase 158 H (30-135) U/L Serum Total Protein 6.6 (6.3-8.2) g/dL Albumin 3.3 L (3.5-5.0) g/dL Stl C. diff Tox B Gene (NEGATIVE) C.difficile 027-NAP1-B1 (NEGATIVE) 07/03/17 Range/Units 05:48 WBC (4.0-10.5) K/mm3 RBC (4.1-5.4) M/mm3 Hgb (12.0-16.0) gm/dl Hct (35-47) % MCV (78-100) fl MCH (26-32) pg MCHC (32-36) g/dl RDW (11.5-14.0) % Plt Count (150-450) K/mm3 MPV (6-9.5) fl Gran % (36.0-66.0) % Eos # (Auto) (0-0.5) Absolute Lymphs (auto) (1.0-4.6) Absolute Monos (auto) (0.0-1.3) Lymphocytes % (24.0-44.0) % Monocytes % (0.0-12.0) % Eosinophils % (0.00-5.0) % Basophils % (0.0-0.4) % Absolute Granulocytes (1.4-6.9) Basophils # (0-0.4) Puncture Site pCO2 (35-45) mmHg pO2 (75-100) mmHg Base Excess (-2.0-2.0) O2 Saturation (94-100) g/dF ABG pH (7.35-7.45) ABG HCO3 (22-28) ABG O2 Sat (Measured) (95-100) % Elmo Test A-a Gradient a/A Ratio Hemoglobin Carboxyhemoglobin (0.0-6.9) % THgb Methemoglobin (1.4-1.5) % Potassium (3.5-5.1) Temperature C POC O2 Flow Rate % Sodium (137-145) mmol/L Chloride (98-107) mmol/L Carbon Dioxide (22-30) mmol/L Anion Gap (5-15) MEQ/L BUN (7-17) mg/dL Creatinine (0.52-1.04) mg/dL Estimated GFR ML/MIN Glucose (74-106) mg/dL Lactic Acid 1.7 (0.4-2.0) Calcium (8.4-10.2) mg/dL Total Bilirubin (0.2-1.3) mg/dL AST (14-36) U/L ALT (0-35) U/L Alkaline Phosphatase (38-126) U/L Creatine Kinase (30-135) U/L Serum Total Protein (6.3-8.2) g/dL Albumin (3.5-5.0) g/dL Stl C. diff Tox B Gene (NEGATIVE) C.difficile 027-NAP1-B1 (NEGATIVE) Assessment/Plan (1) C. difficile colitis Current Visit: Yes Status: Acute Assessment & Plan: on IV flagyl and po vancomycin. No stools today. (2) Altered mental status Current Visit: Yes Status: Resolved Qualifiers: Altered mental status type: disorientation Qualified Code(s): R41.0 - Disorientation, unspecified Code(s): R41.82 - ALTERED MENTAL STATUS, UNSPECIFIED (3) Sepsis Current Visit: Yes Status: Acute Qualifiers: Sepsis type: sepsis due to unspecified organism Qualified Code(s): A41.9 - Sepsis, unspecified organism Assessment & Plan: Much improved today. Will transfer to med surg. Cultures are pending. (4) UTI (urinary tract infection) Current Visit: Yes Status: Acute Qualifiers: Urinary tract infection type: site unspecified Hematuria presence: without hematuria Qualified Code(s): N39.0 - Urinary tract infection, site not specified Assessment & Plan: Now that she is conversant, I know that she had sx of polyuria - will go ahead and treat for UTI while cultures are pending. Code(s): N39.0 - URINARY TRACT INFECTION, SITE NOT SPECIFIED
[2017-07-03] MEDS: Requip 0.5 MG PO SCH ×3 (09:55→22:52)
[2017-07-03] MEDS: Acidophilus TABLET PO SCH (09:55)
[2017-07-03] MEDS: TENORMIN 50 MG PO SCH ×2 (09:56→22:52)
[2017-07-03] MEDS: CLARITIN 10 MG PO SCH (09:57)
[2017-07-03] MEDS: Protonix 40MG Tablet PO SCH (09:57)
[2017-07-03] MEDS: THERAGRAN MULTIVITAMIN PO SCH (09:57)
[2017-07-03] MEDS: LIORESAL 10 MG PO SCH ×4 (09:58→22:52)
[2017-07-03] MEDS: ENOXAPARIN SODIUM SQ SCH (09:58)
[2017-07-03] MEDS: FEOSOL 325 MG PO SCH ×3 (09:58→22:52)
[2017-07-03] MEDS: NEURONTIN 300 MG PO SCH ×3 (09:58→22:53)
[2017-07-03] MEDS ORDERED: NON-FORMULARY ITEM (Omeprazole 20 Mg [Prilosec 20 Mg] 20 MG) PO SCH (10:00)
[2017-07-03] MEDS ORDERED: NON-FORMULARY ITEM (Multivit With Calcium,Iron,Min [Womens Multiple Vitamins] 1 EACH) PO SCH (10:00)
[2017-07-03] MEDS: ROCEPHIN 1 Gm-D5w 50 ml Bag** 1 G/50 ML IVPB IV SCH (10:02)
[2017-07-03] MEDS: Flonase NASAL NS SCH (10:06)
[2017-07-03 18:13] LABS: Amphetamine,Urine NEGATIVE (NEGATIVE); Barbiturate,Urine NEGATIVE (NEGATIVE); Benzodiazepine,Urine NEGATIVE (NEGATIVE); Cocaine,Urine NEGATIVE (NEGATIVE); Methadone,Urine NEGATIVE (NEGATIVE); Opiate,Urine NEGATIVE (NEGATIVE); PCP,Urine NEGATIVE (NEGATIVE); THC,Urine NEGATIVE (NEGATIVE)
[2017-07-03] MEDS: ZOCOR 20MG PO SCH (22:52)
[2017-07-03] MEDS: PATIENT OWN MEDICATION PO SCH (22:53)
[2017-07-03] MEDS: DESYREL 50 MG PO SCH (22:53)
[2017-07-04] MEDS: TYLENOL 325 MG PO PRN ×3 (01:04→21:38)
[2017-07-04] MEDS: VANCOMYCIN 25MG/ML COMPOUND KIT PO SCH ×4 (02:49→19:52)
[2017-07-04] MEDS: FLAGYL 500 MG IVPB 500 MG/100 ML BAG IV SCH ×3 (05:55→21:34)
[2017-07-04] MEDS: Sodium Chloride 0.9% 1000 ML 1,000 ML IV SCH ×5 (06:11→19:52)
[2017-07-04] MEDS ORDERED: Ativan 2 MG/1 ML VIAL IV ONE (08:21)
--- NOTE | 2017-07-04 08:26 | PCM.NOTE ---
Date and Time: 07/04/17821 Subjective Assessment: She is feeling better but is having cramping in her legs this morning. - Review of Systems Constitutional: No Fever Musculoskeletal: Other (muscle cramp) Objective Exam General Appearance: mild distress (with cramping), alert Neurologic Exam: oriented x 3, cooperative Skin Exam: normal color, warm, dry, other (lesions on face, scattered erythematous), No rash Eye Exam: eyes nml inspection Ears, Nose, Throat Exam: moist mucous membranes Respiratory Exam: normal breath sounds, lungs clear, No crackles/rales, No rhonchi, No wheezing Cardiovascular Exam: regular rate/rhythm, normal heart sounds, No murmur Gastrointestinal/Abdomen Exam: soft, No tenderness Extremity Exam: other (legs with spasticity bilat, 1 L s/p remote amputation. no edema) OBJECTIVE DATA Vital Signs: Vital Signs - 24 hr Temp Pulse Resp BP BP Pulse Ox 07/04/17 04:00 98.8 F 94 H 14 144/73 94 L 07/04/17 00:00 98.7 F 95 H 16 133/70 95 07/03/17 20:00 98.4 F 103 H 18 169/86 97 07/03/17 16:13 98.7 F 104 H 18 129/63 97 07/03/17 11:00 98 F 104 H 22 140/87 96 07/03/17 09:56 111 H 152/88 Oxygen-Last 24 hours O2 Percentage 2 Liters = 28% Pain Assessment - Last Documented Pain Intensity 4 Pain Scale Used [facility] Intake and Output: Intake & Output 07/01/17 07/02/17 07/03/17 07/04/17 11:59 11:59 11:59 11:59 Intake Total 5305 720 Output Total 8100 5000 Balance -3860 -8226 Weight 80 kg Lab Results: Lab Results-Last 24 Hours 07/03/17 Range/Units 17:50 Urine Opiates Level NEGATIVE (NEGATIVE) Ur Methadone NEGATIVE (NEGATIVE) Urine Barbiturates NEGATIVE (NEGATIVE) Ur Phencyclidine (PCP) NEGATIVE (NEGATIVE) Urine Amphetamine NEGATIVE (NEGATIVE) U Benzodiazepine Level NEGATIVE (NEGATIVE) Urine Cocaine NEGATIVE (NEGATIVE) Urine Marijuana (THC) NEGATIVE (NEGATIVE) Assessment/Plan (1) C. difficile colitis Current Visit: Yes Status: Acute Assessment & Plan: on po vancomycin and IV flagyl. Had 3 stools yesterday afternoon and 1 last night. None this morning yet. (2) Sepsis Current Visit: Yes Status: Acute Qualifiers: Sepsis type: sepsis due to unspecified organism Qualified Code(s): A41.9 - Sepsis, unspecified organism (3) UTI (urinary tract infection) Current Visit: Yes Status: Acute Qualifiers: Urinary tract infection type: site unspecified Hematuria presence: without hematuria Qualified Code(s): N39.0 - Urinary tract infection, site not specified Assessment & Plan: K. pneumoniae ramirez susceptible. Continue Iv rocephin today and change to po bactrim tomorrow. Code(s): N39.0 - URINARY TRACT INFECTION, SITE NOT SPECIFIED (4) Spasticity Current Visit: Yes Status: Chronic Assessment & Plan: add ativan this morning. 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
[2017-07-04] MEDS: FEOSOL 325 MG PO SCH ×3 (08:32→21:34)
[2017-07-04] MEDS: Acidophilus TABLET PO SCH (08:32)
[2017-07-04] MEDS: LIORESAL 10 MG PO SCH ×4 (08:32→21:36)
[2017-07-04] MEDS: TENORMIN 50 MG PO SCH ×2 (08:33→21:45)
[2017-07-04] MEDS: Requip 0.5 MG PO SCH ×3 (08:35→21:36)
[2017-07-04] MEDS: ENOXAPARIN SODIUM SQ SCH (08:35)
[2017-07-04] MEDS: CLARITIN 10 MG PO SCH (08:35)
[2017-07-04] MEDS: Protonix 40MG Tablet PO SCH (08:35)
[2017-07-04] MEDS: THERAGRAN MULTIVITAMIN PO SCH (08:35)
[2017-07-04] MEDS: NEURONTIN 300 MG PO SCH ×3 (08:35→21:36)
[2017-07-04] MEDS: ROCEPHIN 1 Gm-D5w 50 ml Bag** 1 G/50 ML IVPB IV SCH (08:36)
[2017-07-04] MEDS: Flonase NASAL NS SCH (08:36)
[2017-07-04 08:39] LABS: BASOPHIL % 0.2 % (0.0-0.4); Basophil (Absolute #) 0.03 (0-0.4); Eosinophil % 3.9 % (0.00-5.0); Eosinophil (Absolute #) 0.47 (0-0.5); Granulocyte Absolute (ANC) 7.84 (1.4-6.9); Granulocytes % 64.2 % (36.0-66.0); Hematocrit 33.4 % (35-47); Hemoglobin 10.1 gm/dl (12.0-16.0); Lymphocyte (Absolute #) 3.13 (1.0-4.6); Lymphocytes % 25.7 % (24.0-44.0); Mean Cell Volume 95.2 fl (78-100); Mean Corpuscular Hgb Concent. 30.2 g/dl (32-36); Monocyte (Absolute #) 0.73 (0.0-1.3); Platelet Count 219 K/mm3 (150-450); Red Blood Count 3.51 M/mm3 (4.1-5.4); Red Cell Distribution Width 15.1 % (11.5-14.0); White Blood Count 12.2 K/mm3 (4.0-10.5)
[2017-07-04 08:41] LABS: ANION GAP 15.8 MEQ/L (5-15); BLOOD UREA NITROGEN 4 mg/dL (7-17); CHLORIDE 109 mmol/L (98-107); Calcium 8.4 mg/dL (8.4-10.2); Carbon Dioxide 19 mmol/L (22-30); Glucose 115 mg/dL (74-106); Potassium 3.2 mmol/L (3.5-5.1); SODIUM 141 mmol/L (137-145)
[2017-07-04 09:13] LABS: Mean Corpuscular Hemoglobin 28.7 pg (26-32)
[2017-07-04 10:38] LABS: Slide Review 1 YES
[2017-07-04] MEDS: Lactated Ringers 1,000 ML IV SCH ×3 (19:36→19:38)
[2017-07-04] MEDS: TRANDATE 20 MG/5 ML SYRINGE IV PRN (20:16)
[2017-07-04] MEDS: DESYREL 50 MG PO SCH (21:34)
[2017-07-04] MEDS: ZOCOR 20MG PO SCH (21:36)
[2017-07-04] MEDS: PATIENT OWN MEDICATION PO SCH (21:40)
[2017-07-05] MEDS: Lactated Ringers 1,000 ML IV SCH (00:38)
[2017-07-05] MEDS: VANCOMYCIN 25MG/ML COMPOUND KIT PO SCH ×4 (03:00→22:14)
[2017-07-05] MEDS: Sodium Chloride 0.9% 1000 ML 1,000 ML IV SCH ×3 (03:21→19:45)
[2017-07-05] MEDS: FLAGYL 500 MG IVPB 500 MG/100 ML BAG IV SCH ×3 (06:16→20:50)
--- NOTE | 2017-07-05 08:41 | PCM.NOTE ---
Date and Time: 07/05/17 0837 Subjective Assessment: Pt is feeling better. Did have loose stools yesterday, unsure how many and unsure what amount. - Review of Systems Constitutional: No Fever Abdominal/Gastrointestinal: Diarrhea Objective Exam General Appearance: no apparent distress, alert Neurologic Exam: oriented x 3, cooperative Skin Exam: normal color, warm, dry, other (scattered healing erythematous lesions on face) Ears, Nose, Throat Exam: moist mucous membranes Respiratory Exam: normal breath sounds, lungs clear, No crackles/rales, No rhonchi, No wheezing Cardiovascular Exam: regular rate/rhythm, normal heart sounds, No murmur Gastrointestinal/Abdomen Exam: soft, normal bowel sounds, No tenderness, No distention, No mass, No guarding, No rebound OBJECTIVE DATA Vital Signs: Vital Signs - 24 hr Temp Pulse Resp BP BP Pulse Ox 07/05/17 08:05 98.5 F 92 H 22 158/84 97 07/05/17 05:00 98.7 F 103 H 20 152/90 95 07/05/17 00:36 98 F 95 H 32 H 165/78 96 07/04/17 21:45 104 H 182/87 182/87 07/04/17 20:00 98.8 F 103 H 20 200/118 94 L 07/04/17 09:57 132/62 Pain Assessment - Last Documented Pain Intensity 0 Pain Scale Used 0-10 Pain Scale Intake and Output: Intake & Output 07/02/17 07/03/17 07/04/17 07/05/17 11:59 11:59 11:59 11:59 Intake Total 5300 052 7746 Output Total 8125 0399 7212 Balance -2707 -7200 906 Weight 80 kg 80 kg Lab Results: Lab Results-Last 24 Hours 07/04/17 07/04/17 Range/Units 08:16 08:16 WBC 12.2 H (4.0-10.5) K/mm3 RBC 3.51 L (4.1-5.4) M/mm3 Hgb 10.1 L (12.0-16.0) gm/dl Hct 33.4 L (35-47) % MCV 95.2 (78-100) fl MCH 28.7 (26-32) pg MCHC 30.2 L (32-36) g/dl RDW 15.1 H (11.5-14.0) % Plt Count 219 (150-450) K/mm3 MPV 12.0 H (6-9.5) fl Gran % 64.2 (36.0-66.0) % Eos # (Auto) 0.47 (0-0.5) Absolute Lymphs (auto) 3.13 (1.0-4.6) Absolute Monos (auto) 0.73 (0.0-1.3) Lymphocytes % 25.7 (24.0-44.0) % Monocytes % 6.0 (0.0-12.0) % Eosinophils % 3.9 (0.00-5.0) % Basophils % 0.2 (0.0-0.4) % Absolute Granulocytes 7.84 H (1.4-6.9) Basophils # 0.03 (0-0.4) Sodium 141 (137-145) mmol/L Potassium 3.2 L (3.5-5.1) mmol/L Chloride 109 H (98-107) mmol/L Carbon Dioxide 19 L (22-30) mmol/L Anion Gap 15.8 H (5-15) MEQ/L BUN 4 L (7-17) mg/dL Creatinine 0.40 L (0.52-1.04) mg/dL Estimated GFR > 60.0 ML/MIN Glucose 115 H (74-106) mg/dL Calcium 8.4 (8.4-10.2) mg/dL Magnesium 1.8 (1.6-2.3) mg/dL Slides for Path Review YES Assessment/Plan (1) C. difficile colitis Current Visit: Yes Status: Acute Assessment & Plan: Still having quite a few stools. Continue IV flagyl and po vancomycin, particularly in light of continued treatment for UTI. (2) Sepsis Current Visit: Yes Status: Resolved Qualifiers: Sepsis type: sepsis due to unspecified organism Qualified Code(s): A41.9 - Sepsis, unspecified organism (3) UTI (urinary tract infection) Current Visit: Yes Status: Acute Qualifiers: Urinary tract infection type: site unspecified Hematuria presence: without hematuria Qualified Code(s): N39.0 - Urinary tract infection, site not specified Assessment & Plan: Will treat one more day with rocephin, then stop. 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
[2017-07-05] MEDS: Acidophilus TABLET PO SCH (10:08)
[2017-07-05] MEDS: Requip 0.5 MG PO SCH ×3 (10:08→20:50)
[2017-07-05] MEDS: TENORMIN 50 MG PO SCH ×2 (10:08→20:21)
[2017-07-05] MEDS: Protonix 40MG Tablet PO SCH (10:08)
[2017-07-05] MEDS: ENOXAPARIN SODIUM SQ SCH (10:08)
[2017-07-05] MEDS: THERAGRAN MULTIVITAMIN PO SCH (10:15)
[2017-07-05] MEDS: ROCEPHIN 1 Gm-D5w 50 ml Bag** 1 G/50 ML IVPB IV SCH (10:16)
[2017-07-05] MEDS: LIORESAL 10 MG PO SCH ×4 (10:16→20:52)
[2017-07-05] MEDS: Flonase NASAL NS SCH (10:24)
[2017-07-05] MEDS: CLARITIN 10 MG PO SCH (10:30)
[2017-07-05] MEDS: FEOSOL 325 MG PO SCH ×3 (10:30→20:50)
[2017-07-05] MEDS: NEURONTIN 300 MG PO SCH ×3 (10:31→20:50)
[2017-07-05] MEDS: TYLENOL 325 MG PO PRN (12:32)
[2017-07-05] MEDS: DESYREL 50 MG PO SCH (20:50)
[2017-07-05] MEDS: ZOCOR 20MG PO SCH (20:50)
[2017-07-05] MEDS: PATIENT OWN MEDICATION PO SCH (20:54)
[2017-07-06] MEDS: VANCOMYCIN 25MG/ML COMPOUND KIT PO SCH ×3 (03:04→15:09)
[2017-07-06] MEDS: Lactated Ringers 1,000 ML IV SCH (03:13)
[2017-07-06] MEDS: TRANDATE 20 MG/5 ML SYRINGE IV PRN ×3 (03:37→10:02)
[2017-07-06] MEDS: TYLENOL 325 MG PO PRN (03:41)
[2017-07-06] MEDS: FLAGYL 500 MG IVPB 500 MG/100 ML BAG IV SCH ×2 (05:32→13:12)
[2017-07-06] MEDS: CLARITIN 10 MG PO SCH (09:58)
[2017-07-06] MEDS: LIORESAL 10 MG PO SCH ×2 (09:58→13:13)
[2017-07-06] MEDS: NEURONTIN 300 MG PO SCH ×2 (09:58→15:09)
[2017-07-06] MEDS: Protonix 40MG Tablet PO SCH (09:59)
[2017-07-06] MEDS: Acidophilus TABLET PO SCH (09:59)
[2017-07-06] MEDS: Requip 0.5 MG PO SCH ×2 (10:00→15:09)
[2017-07-06] MEDS: THERAGRAN MULTIVITAMIN PO SCH (10:00)
[2017-07-06] MEDS: FEOSOL 325 MG PO SCH ×2 (10:00→15:09)
[2017-07-06] MEDS ORDERED: NORVASC 5 MG PO SCH (10:00)
[2017-07-06] MEDS: TENORMIN 50 MG PO SCH (10:01)
[2017-07-06] MEDS: ROCEPHIN 1 Gm-D5w 50 ml Bag** 1 G/50 ML IVPB IV SCH (10:01)
[2017-07-06] MEDS: Flonase NASAL NS SCH (10:18)
[2017-07-06] MEDS: ENOXAPARIN SODIUM SQ SCH (10:18)
[2017-07-06 11:45] VITALS: O2SAT 95
--- NOTE | 2017-07-06 14:07 | PCM.DS ---
Discharge Summary Date of Admission: 07/02/17 14:38 Admitting Physician: ARACELY JUAREZ Primary Care Provider: ARACELY JUAREZ Allergies Allergies prochlorperazine edisylate [From Compazine] Allergy (Mild, Verified 07/02/17 11: 04) prochlorperazine maleate [From Compazine] Allergy (Mild, Verified 07/02/17 11:04 ) latex Adverse Reaction (Verified 07/02/17 11:04) Hospital Summary - Hospital Course Hospital Course: Pt of Ashleigh Clay with LE amputation, spasticity, and patent urachus admitted through ER with sepsis and AMS. Found to have UTI and positive for c. diff. She was given 1 dose of rocephin in the ER; the next morning when I spoke wiht her, she remembered having some urinary sx so rocephin was continued x 3d. She was also started on IV flagyl and po vancomycin. She is unaware of the nature and frequency of her stools, but they have decreased since admission. Per nursing at about 1/shift at home. Pt lives at home but usually sits on her couch most of the day and drinks pop ( and self -caths as needed). She used much more than the allotted amount of catheter supplies for the past several months. Currently she has a merrill catheter (and will be discharged with one). Had some elevated BP and was increased tenormin to 50 po BID and added norvasc 5mg po daily. Pt will be discharged to [facility] for therapy. - Vitals & Intake/Output Vital Signs: Vital Signs Temperature 98.7 F 07/06/17 11:42 Pulse Rate 92 H 07/06/17 11:42 Respiratory Rate 16 07/06/17 11:42 Blood Pressure 144/74 07/06/17 11:42 O2 Sat by Pulse Oximetry 95 07/06/17 11:42 Oxygen-Last Documented O2 Percentage 2 Liters = 28% Intake & Output: Intake & Output 07/04/17 07/05/17 07/06/17 07/07/17 11:59 11:59 11:59 11:59 Intake Total 720 8101 5673 Output Total 5000 8100 5450 Balance -4280 1 223 Weight 80 kg - Lab Result Diagrams: 07/04/17 08:16 07/04/17 08:16 - Procedures and Test Procedures and Tests throughout Hospitalization: Therapy Orders & Screens 07/02/17 15:14 ST Screen per Nursing Assess once Comment: Protocol Order Physician Instructions: Greater than [address] Admission Screening Reason For Exam: Triggered on Admission Diagnosis: AMS CVA/Dyshpagia/Aphasia: No Cognitive Deficits: Yes Dehydration/Nutrition Deficit: No Reflux: Yes Oral-Motor Difficulties: No Pneumonia: No Long-Term Resident: No Total Points: 6 Discharge Exam General Appearance: no apparent distress, alert Neurologic Exam: oriented x 3, cooperative Skin Exam: warm, dry, other (healing annular erythematous lesions on face) Eye Exam: eyes nml inspection Ears, Nose, Throat Exam: moist mucous membranes Neck Exam: normal inspection Respiratory Exam: normal breath sounds, lungs clear, No crackles/rales, No rhonchi, No wheezing Cardiovascular Exam: regular rate/rhythm, normal heart sounds, No murmur Extremity Exam: other (spasticity; RLE remote amputation. scattered erythematous areas on LLE.) Final Diagnosis/Problem List - Final Discharge Diagnosis/Problem (1) C. difficile colitis Current Visit: Yes Status: Acute Assessment & Plan: Doing much better, d/c on po flagyl. (2) UTI (urinary tract infection) Current Visit: Yes Status: Acute Assessment & Plan: she was adequately treated with rocephin for K. pneumoniae UTI, ramirez-susceptible. (3) Spasticity Current Visit: Yes Status: Chronic (4) Patent urachus Current Visit: Yes Status: Chronic Assessment & Plan: At baseline pt will need to self-catheterize at least q4h. (5) Muscular deconditioning Current Visit: Yes Status: Acute Assessment & Plan: Will be worse after this hospital stay. Needs some therapy to allow her more mobility at home. - Discharge Disposition: DC TO [facility] Condition: Stable Prescriptions: New Metronidazole 500 mg [Flagyl 500 MG] 500 mg PO QID #40 tablet Amlodipine Besylate 5 mg [Norvasc 5 mg] 5 mg PO QAM #30 tablet Atenolol 50 mg [Tenormin 50 mg] 50 mg PO BID #60 tablet Continue Niacin [Niaspan] 1,000 mg PO HS Baclofen 25 mg PO QID Omeprazole 20 MG [Prilosec 20 mg] 20 mg PO DAILY Ferrous Sulfate 325 mg [Feosol 325 mg] 325 mg PO TID Trazodone HCl 50 mg [Desyrel 50 mg] 100 mg PO DAILY Oxybutynin Chloride [Ditropan Xl] 15 mg PO BID Gabapentin 300 mg [Neurontin 300 mg] 300 mg PO TID Atorvastatin Calcium [Lipitor] 20 mg PO HS Cranberry Conc/Ascorbic Acid [Cranberry 6,000 mg Softgel] 2 each PO DAILY Solifenacin Succinate [Vesicare] 10 mg PO DAILY Lactobacillus Acidophilus [Acidophilus TABLET] 1 tab PO DAILY SUMAtriptan succinate [Imitrex 50 mg] 50 mg PO .PRN Ropinirole HCl 0.5 mg [Requip 0.5 MG] 0.5 mg TID Loratadine 10 mg [Claritin 10 mg] 10 mg DAILY Multivit with Calcium,Iron,Min [Womens Multiple Vitamins] 1 each PO DAILY Fluticasone Propionate 1 spray INTRANASAL DAILY Desog-E.estradiol/E.estradiol [Viorele 28 Day Tablet] 1 tab PO DAILY Discontinued Atenolol [Tenormin] 25 mg PO BID Follow up with: ARACELY JUAREZ [Primary Care Provider] - 1 Week
[2017-07-06 15:49] VITALS: BP 167/87; PULSE 103
== END 2017-07-06 15:50 | DRG 371 ==
LOC: ED 10:52 → ICU 14:38 → MED SURG 07-03 10:15
PROVIDERS: ADMIT Family Medicine; ATTEND Family Medicine
DX: A04.72 Enterocolitis due to Clostridium difficile, not specified as recurrent (principal); G93.41 Metabolic encephalopathy; A41.9 Sepsis, unspecified organism; R00.0 Tachycardia, unspecified; N39.0 Urinary tract infection, site not specified; R25.2 Cramp and spasm; Q64.4 Malformation of urachus; K76.89 Other specified diseases of liver; I10 Essential (primary) hypertension; R41.0 Disorientation, unspecified; J45.909 Unspecified asthma, uncomplicated; G82.20 Paraplegia, unspecified; J40 Bronchitis, not specified as acute or chronic; M19.90 Unspecified osteoarthritis, unspecified site; R10.9 Unspecified abdominal pain; K21.9 Gastro-esophageal reflux disease without esophagitis; F41.9 Anxiety disorder, unspecified; Z79.899 Other long term (current) drug therapy
CPT/HCPCS: 36415; 36600; 51702; 70450; 71045; 74177; 80048; 80053; 80307; 81000; 82150; 82375; 82550; 82803; 83605; 83690; 83735; 84443; 84484; 84703; 85025; 85027; 87040; 87077; 87086; 87186; 87493; 93005; 96360; 96361; 96365; 96366; 99285; J0696; J1650; J2060; J2543; A9270-GY